=== PATIENT | female | born 1990 | race Caucasian/White ===

== ENCOUNTER 2019-09-11 03:43 | Emergency (ER) | payer OTHER ==
[~2019-09-11] VITALS: Ht 175.3 cm; Wt 124.7 kg
[2019-09-11] MEDS ORDERED: ONDANSETRON HCL/PF 4 MG/2 ML VIAL ONE (04:04)
[2019-09-11] MEDS ORDERED: MORPHINE SULFATE INJ 4 MG/ML DISP.SYRIN ONE ×2 (04:05→05:45)
[2019-09-11 04:19] LABS: APPEARANCE,URINE Clear (CLEAR); BILIRUBIN,URINE Negative (NEGATIVE); BLOOD, URINE Negative Ery/uL (NEGATIVE); COLOR,URINE Yellow (YELLOW); KETONES,URINE Negative (NEGATIVE); LEUKOCYTE ESTERASE ,URINE Negative (NEGATIVE); NITRITE, URINE Negative (NEGATIVE); PH,URINE 5.5 (5.0-8.0); PROTEIN,URINE Negative (NEGATIVE); UGLUCOSE Negative (NEGATIVE); UROBILINOGEN,URINE 0.2 EU/dL (0.2)
[2019-09-11] MEDS ORDERED: ONDANSETRON HCL/PF 4 MG/2 ML VIAL IV ONE (04:30)
[2019-09-11] MEDS ORDERED: MORPHINE SULFATE INJ 2 MG/ML DISP.SYRIN IV ONE (04:30)
[2019-09-11] MEDS ORDERED: IV NS 0.9% 1,000 ML BAG IV ONE (04:30)
--- NOTE | 2019-09-11 04:42 | NUR ---
PT BIBRA C/O LOWER ABD PAIN SINCE 1AM AND BLOODY STOOL. PT APPEARS UNCOMFORTABLE DUE TO PAIN. PT DENIES CHEST PAIN, N/V, DYSURIA, AAOX4. SKIN WARM AND INTACT, BREATHING EVEN AND UNLABORED, VSS, PT ON MONITOR AND PULSE OX, WILL CONTINUE TO MONITOR.
[2019-09-11 04:44] LABS: OCCULT BLOOD STOOL POSITIVE (NEGATIVE)
[2019-09-11 04:45] LABS: BASOPHILS # (AUTO) 0.1 /CMM (0.0-0.2); BASOPHILS % (AUTO) 0.6 % (0.0-2.0); EOSINOPHILS % (AUTO) 0.1 % (0.0-6.0); HEMATOCRIT 43 % (33-45); HEMOGLOBIN 14.5 g/dL (11.5-14.8); LYMPHOCYTES # (AUTO) 1.7 /CMM (0.8-4.8); MEAN CORPUSCULAR HGB CONC 34 g/dl (31.0-36.0); MEAN CORPUSCULAR VOLUME 85 fL (82-100); MONOCYTES # (AUTO) 0.7 /CMM (0.1-1.30); MONOCYTES % (AUTO) 5.6 % (2.0-12.0); NEUTROPHILS # (AUTO) 10.5 /CMM (1.8-8.9); NEUTROPHILS % (AUTO) 80.7 % (43.0-81.0); PLATELET COUNT (AUTO) 309 /CMM (150-450)
--- NOTE | 2019-09-11 04:47 | NUR ---
PT BROUGHT BY RADIOLOGY TO CT
[2019-09-11 04:56] LABS: CALCIUM, SERUM 9.9 mg/dL (8.5-10.1); CREATININE 0.9 mg/dL (0.6-1.3)
[2019-09-11 05:00] LABS: ALBUMIN 3.7 g/dL (3.4-5.0); BILIRUBIN,DIRECT 0.1 mg/dL (0.0-0.2); BILIRUBIN,TOTAL 0.3 mg/dL (0.2-1.0); TOTAL PROTEIN, SERUM 8.6 g/dL (6.4-8.2)
--- NOTE | 2019-09-11 05:44 | NUR ---
PER VERBAL MD ORDER WILL ADMINISTER 4MG MORPHINE IV X1 NOW
[2019-09-11] MEDS ORDERED: MORPHINE SULFATE INJ 10 MG/ML DISP.SYRIN IV ONE (06:00)
--- NOTE | 2019-09-11 06:38 | NUR ---
Patient discharged to home in stable condition. Written and verbal after care instructions given. Patient verbalizes understanding of instruction. IV removed. Catheter intact and site benign. Pressure and 4x4 applied to site. No bleeding noted. PT ambulatory with a steady gait.
[2019-09-11 06:39] VITALS: BP 138/86
== END 2019-09-11 06:39 | disposition home or self-care (01) ==
LOC: ER 03:49
DX: K52.9 Noninfective gastroenteritis and colitis, unspecified (principal); F41.9 Anxiety disorder, unspecified
CPT/HCPCS: 36415; 74176; 80048; 80076; 81001; 82272; 83690; 84703; 85025; 86850; 87015; 87045; 87086; 87427 ×2; 96361; 96374; 96375; 96376; 99284; J2270 ×2; J2405; J7030 ×2; 81000-TC